=== PATIENT | female | born 1960 | race Caucasian/White ===

== ENCOUNTER → 2021-12-29 | Day surgery (SDC) | payer OTHER ==
[~2021-12-29] VITALS: Ht 165.1 cm; Wt 83.9 kg
[~2021-12-29] MED LIST: SYNTHROID100 MCG PO
[2021-12-29 08:58] LABS: HCT 41.1 % (37.0-47.0); HGB 13.4 g/dl (12.5-16.0); MCH 29.1 pg (25.0-31.0); MCHC 32.6 g/dL (32.0-36.0); MCV 89.3 fL (78.0-100.0); RBC 4.6 M/uL (4.20-5.40); RDW 13.3 % (11.5-14.0); WBC 7.1 K/uL (4.0-10.5)
[2021-12-29 09:25] LABS: ALBUMIN 4.4 g/dL (3.4-5.0); BILIRUBIN - TOTAL 0.5 mg/dL (0.2-1.0); BUN/CREAT RATIO (CALC) 24.2 RATIO; CREATININE 0.66 mg/dL (0.51-0.95); POTASSIUM 4.2 mmol/L (3.5-5.1); TOTAL PROTEIN 8.4 g/dL (6.4-8.2)
== END | disposition home or self-care (01) ==
LOC: FAS 07:48
PROVIDERS: Surgery
DX: Z12.11 Encounter for screening for malignant neoplasm of colon (principal); D12.6 Benign neoplasm of colon, unspecified; Z80.0 Family history of malignant neoplasm of digestive organs
CPT/HCPCS: 36415; 80053; J2704